=== PATIENT | male | born 1980 | race American Indian/Alaskan Native ===

== ENCOUNTER 2017-05-24 08:17 | Emergency (ER) | payer MEDICAID ==
[2017-05-24 08:30] VITALS: BP 145/88
--- NOTE | 2017-05-24 10:00 | XRay Report ---
ROUTINE CHEST, TWO VIEWS: HISTORY: Cough. The trachea, heart, mediastinal contour, lung kwong and bony thorax are unremarkable. IMPRESSION: Unremarkable chest x-ray.
[2017-05-24] MEDS ORDERED: TESSALON PERLES PO ONE (10:52)
--- NOTE | 2017-05-24 10:56 | Emergency Department Report ---
- General Chief Complaint: Upper Respiratory Infection Stated Complaint: FLU LIKE SYMPTOMS Time Seen by Provider: 05/24/17 09:41 Source: patient Mode of arrival: Ambulatory Limitations: No Limitations - History of Present Illness Initial Comments: This is a 36-year-old male nontoxic, well nourished in appearance, no acute signs of distress presents to the ED with c/o of productive cough, subjective fever, chills, rhinorrhea, nasal congestion 1 week. Patient describes productive cough as green mucous production. States that he has history of similar symptoms and diagnosed with bronchitis and receives prednisone symptoms are resolved and subsided. Patient denies any recent travels, long car rides, or recent hospital stays. Patient denies any chest pain, shortness of breath, difficulty breathing, nausea, vomiting, headache, stiff neck, fever, chills, blurry vision, numbness, hemoptysis, tingling, abdominal pain or back pain. Patient denies any calf pain or calf tenderness. Patient denies any drug allergies. MD Complaint: fever, cough, rhinorrhea, nasal congestion -: week(s) (1) Severity: mild Consistency: constant Improves With: nothing Worsens With: nothing Associated Symptoms: fever, chills, rhinorrhea, nasal congestion, cough. denies : myalgias, diaphoresis, headache, sore throat, stiff neck, chest pain, shortness of breath, abdominal pain, nausea, vomiting, diarrhea, dysuria, rash, confusion, right sweats, weight loss, epistaxis, hoarseness, ear pain Treatments Prior to Arrival: none - Related Data Previous Rx's Medication Instructions Recorded Last Taken Type Azithromycin [Zithromax Z-ALESSANDRA] 250 mg PO DAILY #6 tablet 05/24/17 Unknown Rx Benzonatate [Tessalon Perle] 100 mg PO Q6H #20 capsule 05/24/17 Unknown Rx predniSONE [Deltasone] 40 mg PO QDAY #5 tab 05/24/17 Unknown Rx Allergies Allergy/AdvReac Type Severity Reaction Status Date / Time ALL SEAFOOD AdvReac Severe Anaphylaxis Uncoded 04/07/16 07:55 ED Review of Systems ROS: Stated complaint: FLU LIKE SYMPTOMS Other details as noted in HPI Constitutional: denies: chills, fever Eyes: denies: eye pain, eye discharge, vision change ENT: denies: ear pain, throat pain Respiratory: cough. denies: shortness of breath, wheezing Cardiovascular: denies: chest pain, palpitations Endocrine: no symptoms reported Gastrointestinal: denies: abdominal pain, nausea, diarrhea Genitourinary: denies: urgency, dysuria Musculoskeletal: denies: back pain, joint swelling, arthralgia Skin: denies: rash, lesions Neurological: denies: headache, weakness, paresthesias Psychiatric: denies: anxiety, depression Hematological/Lymphatic: denies: easy bleeding, easy bruising ED Past Medical Hx - Past Medical History Previous Medical History?: No Hx Seizures: Yes (childhood sz, last sz at 15 yrs old) Additional medical history: previously dx'd with sleep apnea - Surgical History Past Surgical History?: No - Social History Smoking Status: Never Smoker Substance Use Type: None - Medications Home Medications: Home Medications Medication Instructions Recorded Confirmed Last Taken Type Azithromycin [Zithromax Z-ALESSANDRA] 250 mg PO DAILY #6 tablet 05/24/17 Unknown Rx Benzonatate [Tessalon Perle] 100 mg PO Q6H #20 capsule 05/24/17 Unknown Rx predniSONE [Deltasone] 40 mg PO QDAY #5 tab 05/24/17 Unknown Rx ED Physical Exam - General Limitations: No Limitations General appearance: alert, in no apparent distress - Head Head exam: Present: atraumatic, normocephalic, normal inspection - Eye Eye exam: Present: normal appearance, PERRL, EOMI. Absent: scleral icterus, conjunctival injection, nystagmus, periorbital swelling, periorbital tenderness Pupils: Present: normal accommodation - ENT ENT exam: Present: normal exam, normal orophraynx, mucous membranes moist, TM's normal bilaterally, normal external ear exam - Neck Neck exam: Present: normal inspection, full ROM. Absent: tenderness, meningismus, lymphadenopathy, thyromegaly - Respiratory Respiratory exam: Present: normal lung sounds bilaterally. Absent: respiratory distress, wheezes, rales, rhonchi, stridor, chest wall tenderness, accessory muscle use, decreased breath sounds, prolonged expiratory - Cardiovascular Cardiovascular Exam: Present: regular rate, normal rhythm, normal heart sounds. Absent: irregular rhythm, systolic murmur, diastolic murmur, rubs, gallop - GI/Abdominal GI/Abdominal exam: Present: soft, normal bowel sounds. Absent: distended, tenderness, guarding, rebound, rigid, diminished bowel sounds - Rectal Rectal exam: Present: deferred - Extremities Exam Extremities exam: Present: normal inspection, full ROM, normal capillary refill. Absent: tenderness, pedal edema, joint swelling, calf tenderness - Back Exam Back exam: Present: normal inspection, full ROM. Absent: tenderness, CVA tenderness (R), CVA tenderness (L), muscle spasm, paraspinal tenderness, vertebral tenderness, rash noted - Neurological Exam Neurological exam: Present: alert, oriented X3, CN II-XII intact, normal gait, reflexes normal - Psychiatric Psychiatric exam: Present: normal affect, normal mood - Skin Skin exam: Present: warm, dry, intact, normal color. Absent: rash ED Course Vital Signs 05/24/17 08:23 Temperature 98.4 F Pulse Rate 93 H Respiratory 18 Rate Blood Pressure 145/88 O2 Sat by Pulse 97 Oximetry - Reevaluation(s) Reevaluation #1: 05/24/17 10:57 Patient is speaking in full sentences with no signs of distress noted. ED Medical Decision Making - Medical Decision Making This is a 36-year-old male that presents with upper respiratory infection vs. bronchitis. Patient is stable and was examined by me. Chest x-ray has been obtained and dictated radiologist with unremarkable x-ray. Patient is notified of x-ray results with noted by the patient. Negative influenza swab. I will treat patient empirically with azithromycin due to symptoms worsening and going on for about a week. She also received prednisone and Tessalon Perle at discharge. Patient was instructed Follow-up with a primary care doctor in 3-5 days or if symptoms worsen and continue return to emergency room as soon as possible. At time time of discharge, the patient does not seem toxic or ill in appearance. No acute signs of distress noted. Patient agrees to discharge treatment plan of care. No further questions noted by the patient. Wells criteria for PE; 0.6. Unlikely and has a 1.3% incidence of PE Critical care attestation.: If time is entered above; I have spent that time in minutes in the direct care of this critically ill patient, excluding procedure time. ED Disposition Clinical Impression: Upper respiratory infection Qualifiers: URI type: unspecified URI Qualified Code(s): J06.9 - Acute upper respiratory infection, unspecified Disposition: TO HOME OR SELFCARE Is pt being admited?: No Does the pt Need Aspirin: No Condition: Stable Instructions: Prednisone (By mouth), Azithromycin (By mouth), Upper Respiratory Infection (ED) Additional Instructions: Follow-up with a primary care doctor in 3-5 days or if symptoms worsen and continue return to emergency room as soon as possible. Prescriptions: Azithromycin [Zithromax Z-ALESSANDRA] 250 mg PO DAILY #6 tablet Benzonatate [Tessalon Perle] 100 mg PO Q6H #20 capsule predniSONE [Deltasone] 40 mg PO QDAY #5 tab Referrals: EGRARDO HUBBARD MD [Primary Care Provider] - 3-5 Days PRIMARY CARE, [Referring] - 3-5 Days [facility] [Outside] - 3-5 Days [facility] [Outside] - 3-5 Days Forms: Work/School Release Form(ED)
== END 2017-05-24 11:33 | disposition home or self-care (01) ==
LOC: ED 08:17
DX: J06.9 Acute upper respiratory infection, unspecified (principal); R53.1 Weakness; Z91.013 Allergy to seafood
CPT/HCPCS: 71046; 87400

== ENCOUNTER 2018-01-04 00:42 | Emergency (ER) | payer MEDICAID ==
[2018-01-04 01:21] VITALS: BP 135/76
--- NOTE | 2018-01-04 01:44 | XRay Report ---
FINAL REPORT EXAM: XR NECK SOFT TISSUE HISTORY: feels like something stuck in his throat COMPARISON: None available. FINDINGS: Two views of the neck obtained. Visualized upper airway is patent. No radiopaque foreign body. Prevertebral soft tissues are within normal limits. Mild degenerative changes at the C5-C6 and C6-C7 levels of the cervical spine. IMPRESSION: No radiopaque foreign body. Upper airway is grossly patent by plain film.
== END 2018-01-04 08:34 | disposition left against medical advice (07) ==
LOC: ED 00:42
DX: K08.89 Other specified disorders of teeth and supporting structures (principal); Z53.21 Procedure and treatment not carried out due to patient leaving prior to being seen by health care provider
CPT/HCPCS: 70360

== ENCOUNTER 2018-01-04 16:01 | Emergency (ER) | payer MEDICAID ==
[2018-01-04 19:23] LABS: Basophils % (Auto) 0.5 % (0.0-1.8); Eosinophils # (Auto) 0.2 K/mm3 (0.0-0.4); Hematocrit 46.1 % (35.5-45.6); Hemoglobin 15.6 gm/dl (11.8-15.2); Lymphocytes # (Auto) 3.1 K/mm3 (1.2-5.4); Lymphocytes % (Auto) 33.2 % (13.4-35.0); Mean Corpuscular HGB Conc 34 % (32-34); Mean Corpuscular Hemoglobin 31 pg (28-32); Mean Corpuscular Volume 92 fl (84-94); Monocytes # (Auto) 0.7 K/mm3 (0.0-0.8); Monocytes % (Auto) 7.2 % (0.0-7.3); Platelet Count 240 K/mm3 (140-440); Red Cell Distribution Width 13.5 % (13.2-15.2)
[2018-01-04 19:33] LABS: INR 0.95 (0.87-1.13)
[2018-01-04 19:34] LABS: Partial Thromboplastin Time 28.3 Sec. (24.2-36.6)
[2018-01-04 19:40] LABS: Alanine Aminotransferase 13 units/L (7-56); Albumin 3.9 g/dL (3.9-5); BUN/Creatinine Ratio 12; Blood Urea Nitrogen 11 mg/dL (9-20); Calcium 9.1 mg/dL (8.4-10.2); Hemolysis Index 8
--- NOTE | 2018-01-04 19:40 | Cat Scan Report ---
FINAL REPORT EXAM: CT HEAD/BRAIN WO CON HISTORY: numbness TECHNIQUE: Standard unenhanced CT of the head at 5.0 millimeter axial increments. PRIORS: None. FINDINGS: The ventricular system is normal in size and configuration. There is no evidence for parenchymal volume loss. There is no evidence for mass lesion, mass effect, midline shift, acute intracranial hemorrhage, or acute ischemia/ infarction. No evidence for acute skull fracture is seen. No abnormality in the overlying scalp soft tissues is seen. Visualized paranasal sinuses are clear. IMPRESSION: Negative CT of the head. No acute intracranial process noted.
--- NOTE | 2018-01-04 19:45 | Cat Scan Report ---
FINAL REPORT EXAM: CT CERVICAL SPINE WO CON HISTORY: possible radiolucent foreign body TECHNIQUE: Standard CT cervical spine obtained at 2.5 mm axial increments. Coronal and sagittal reconstruction was also performed. PRIORS: None. FINDINGS: The vertebral bodies are intact. There is no evidence for acute fracture. There is no evidence for paravertebral soft tissue swelling. Alignment is maintained. IMPRESSION: Negative CT of the cervical spine. No evidence for radiopaque foreign body is seen.
--- NOTE | 2018-01-04 20:34 | Emergency Department Report ---
ED General Adult HPI - General Chief complaint: Medical Clearance Stated complaint: HAND/PAIN Time Seen by Provider: 01/04/18 17:03 Source: patient Mode of arrival: Ambulatory Limitations: No Limitations - History of Present Illness Initial comments: Patient had a dental procedure done yesterday. He had his left upper tooth pulled out by the dentist. After the procedure he started having numbness and tingling of both hands and sensation of foreign body in throat. This has been on going since 5 PM yesterday. He denies any weakness of both extremities. -: Sudden, days(s) (1) Location: upper extremity Radiation: non-radiation Severity scale (0 -10): 4 Quality: other (Numbness and tingling) Consistency: constant Improves with: none Worsens with: none Associated Symptoms: other (Foreign body sensation in the throat.). denies: nausea/vomiting, shortness of breath Treatments Prior to Arrival: none - Related Data Previous Rx's Medication Instructions Recorded Last Taken Type Azithromycin [Zithromax Z-ALESSANDRA] 250 mg PO DAILY #6 tablet 05/24/17 Unknown Rx Benzonatate [Tessalon Perle] 100 mg PO Q6H #20 capsule 05/24/17 Unknown Rx predniSONE [Deltasone] 40 mg PO QDAY #5 tab 05/24/17 Unknown Rx Allergies Allergy/AdvReac Type Severity Reaction Status Date / Time ALL SEAFOOD AdvReac Severe Anaphylaxis Uncoded 04/07/16 07:55 ED Review of Systems ROS: Stated complaint: HAND/PAIN Other details as noted in HPI Comment: All other systems reviewed and negative Constitutional: denies: chills, fever Eyes: denies: eye pain ENT: denies: ear pain Respiratory: denies: cough, shortness of breath Cardiovascular: denies: chest pain, palpitations Endocrine: no symptoms reported Gastrointestinal: denies: abdominal pain, nausea, vomiting, diarrhea Genitourinary: denies: urgency, dysuria Musculoskeletal: denies: back pain Skin: denies: rash, lesions Neurological: numbness (Both hands), paresthesias (Both hands). denies: headache, weakness Psychiatric: denies: anxiety, depression Hematological/Lymphatic: denies: easy bleeding, easy bruising ED Past Medical Hx - Past Medical History Hx Seizures: Yes (childhood sz, last sz at 15 yrs old) Additional medical history: previously dx'd with sleep apnea - Surgical History Additional Surgical History: rt leg - Social History Smoking Status: Never Smoker Substance Use Type: None - Medications Home Medications: Home Medications Medication Instructions Recorded Confirmed Last Taken Type Azithromycin [Zithromax Z-ALESSANDRA] 250 mg PO DAILY #6 tablet 05/24/17 Unknown Rx Benzonatate [Tessalon Perle] 100 mg PO Q6H #20 capsule 05/24/17 Unknown Rx predniSONE [Deltasone] 40 mg PO QDAY #5 tab 05/24/17 Unknown Rx ED Physical Exam - General Limitations: No Limitations General appearance: alert, in no apparent distress - Head Head exam: Present: atraumatic, normocephalic, normal inspection - Eye Eye exam: Present: normal appearance, PERRL, EOMI, other (Visual acuity R=20/25 , L=20/30, Both=20/25.) Pupils: Present: normal accommodation - ENT ENT exam: Present: normal exam, mucous membranes dry, mucous membranes moist - Neck Neck exam: Present: normal inspection, full ROM. Absent: tenderness - Respiratory Respiratory exam: Present: normal lung sounds bilaterally. Absent: respiratory distress, wheezes, rales, rhonchi, stridor - Cardiovascular Cardiovascular Exam: Present: regular rate, normal rhythm, normal heart sounds - GI/Abdominal GI/Abdominal exam: Present: soft, normal bowel sounds. Absent: distended, tenderness, guarding, rebound, rigid - Extremities Exam Extremities exam: Present: normal inspection, full ROM, normal capillary refill - Back Exam Back exam: Present: normal inspection, full ROM. Absent: tenderness - Neurological Exam Neurological exam: Present: alert, oriented X3, CN II-XII intact - Psychiatric Psychiatric exam: Present: normal affect, normal mood - Skin Skin exam: Present: warm, dry, intact, normal color. Absent: rash ED Course Vital Signs 01/04/18 16:21 Temperature 97.9 F Pulse Rate 79 Respiratory 16 Rate Blood Pressure 163/89 O2 Sat by Pulse 98 Oximetry - Reevaluation(s) Reevaluation #1: 01/04/18 20:51 I consulted the Tele Neurologist instruction assistant principal Dr Jamison. He recommend discharging patient to follow up in his outpatient clinic tomorrow morning. ED Medical Decision Making - Lab Data Result diagrams: 01/04/18 18:52 01/04/18 18:52 - Radiology Data Radiology results: report reviewed, image reviewed - Medical Decision Making Bilateral Hand Numbness and Tingling sensation. Critical care attestation.: If time is entered above; I have spent that time in minutes in the direct care of this critically ill patient, excluding procedure time. ED Disposition Clinical Impression: Paresthesia of both hands Disposition: DC-01 TO HOME OR SELFCARE Is pt being admited?: No Does the pt Need Aspirin: No Condition: Stable Instructions: Paresthesia (ED) Additional Instructions: Please follow up with the Neurologist Dr Jamison in his out patient clinic tomorrow morning. Office phone number: [phone]. Return to the ED if your condition worsens. Referrals: PRIMARY CARE, [Primary Care Provider] - 3-5 Days SARA JAMISON MD [Staff Physician] - 3-5 Days Time of Disposition: 20:54
[2018-01-04 21:16] VITALS: BP 154/87
== END 2018-01-04 21:14 | disposition home or self-care (01) ==
LOC: ED 16:01
DX: R20.2 Paresthesia of skin (principal); R20.0 Anesthesia of skin; R09.89 Other specified symptoms and signs involving the circulatory and respiratory systems; Z91.013 Allergy to seafood
CPT/HCPCS: 36415; 70450; 72125; 80053; 85025; 85610; 85730